=== PATIENT | male | born 1975 | race Caucasian/White ===

== ENCOUNTER 2024-07-19 11:21 | Emergency (ER) | payer OTHER ==
[~2024-07-19] VITALS: Ht 170.2 cm; Wt 74.8 kg
[2024-07-19] MEDS ORDERED: NS 1,000 ML IV SCH (11:45)
[2024-07-19] MEDS ORDERED: Ondansetron HCl 2 MG / ML 2ML Vial IV ONE (11:50)
[2024-07-19 12:21] LABS: BASOPHILS ABSOLUTE AUTO 0.03 K/mm3 (0.00-0.23); BASOPHILS PERCENT AUTO 0 % (0-2); EOSINOPHILS ABSOLUTE AUTO 0.05 K/mm3 (0.00-0.68); EOSINOPHILS PERCENT AUTO 1 % (0-6); Hematocrit 39.3 % (37.0-53.0); Hemoglobin 12.7 g/dL (13.5-17.5); IMMATURE GRAN ABSOLUTE AUTO 0.02 K/mm3 (0.00-0.10); IMMATURE GRAN PERCENT AUTO 0 % (0-1); LYMPHOCYTES ABSOLUTE AUTO 1.66 K/mm3 (0.84-5.20); LYMPHOCYTES PERCENT AUTO 18 % (21-46); MONOCYTES ABSOLUTE AUTO 0.51 K/mm3 (0.16-1.47); MONOCYTES PERCENT AUTO 5 % (4-13); Mean Corpuscular HGB 25.1 pg (26.0-34.0); Mean Corpuscular HGB Conc 32.3 g/dL (31.5-36.5); Mean Corpuscular Volume 78 fL (80-100); Mean Platelet Volume 9.4 fL (9.1-12.4); NEUTROPHILS ABSOLUTE AUTO 7.23 K/mm3 (1.96-9.15); NEUTROPHILS PERCENT AUTO 76 % (41-73); Platelet Count 322 K/mm3 (150-400); RDW Coefficient Variation 15.7 % (11.7-14.2); RDW Standard Deviation 43.8 fL (35.1-46.3); Red Blood Cell Count 5.05 M/mm3 (4.30-5.90)
[2024-07-19 12:40] LABS: Albumin, Blood 3.7 g/dL (3.4-5.0); Bilirubin, Total 0.3 mg/dL (0.1-1.0); Bun/Creatinine Ratio 29.4 (12.0-20.0); Calcium, Blood 9.3 mg/dL (8.5-10.1); Creatinine, Blood 0.68 mg/dL (0.60-1.20); Globulin, Blood 3.8 g/dL (2.2-4.0); Total Protein, Blood 7.5 g/dL (6.4-8.2)
[2024-07-19] MEDS ORDERED: Pantoprazole Sodium 40 MG Injection IV ONE (14:35)
[2024-07-19] MEDS ORDERED: Metoclopramide HCl 5MG / ML 2ML Vial IV ONE (14:35)
[2024-07-19] MEDS ORDERED: PANT20 PO (14:47)
[2024-07-19] MEDS ORDERED: METO10 PO (14:47)
== END 2024-07-19 15:10 | disposition home or self-care (01) ==
LOC: ER 11:21
PROVIDERS: Student in an Organized Health Care Education/Training Program
DX: K21.9 Gastro-esophageal reflux disease without esophagitis (principal); K44.9 Diaphragmatic hernia without obstruction or gangrene; K42.9 Umbilical hernia without obstruction or gangrene; F17.200 Nicotine dependence, unspecified, uncomplicated; Z88.5 Allergy status to narcotic agent
CPT/HCPCS: 74177; 80053; 83690; 84484; 85025; 96361; 96374-59; 96375; 99284-25; J2405; J2470; J2765; J7030; Q9967